=== PATIENT | female | born 1995 | race Caucasian/White ===

== ENCOUNTER → 2021-10-14 10:28 | Outpatient (BNVA) | payer OTHER, SELFPAY | PROVIDERS: Visit Provider Advanced Practice Midwife | DX: Z32.01 Encounter for pregnancy test, result positive (principal); R10.2 Pelvic and perineal pain; N92.6 Irregular menstruation, unspecified | CPT/HCPCS: 81025 ==

== ENCOUNTER 2021-10-24 09:10 | Outpatient (REF) | payer OTHER, SELFPAY ==
--- NOTE | ~2021-10-24 | US_ITS ---
EXAMINATION: US OBSTETRICAL ULTRASOUND CLINICAL INFORMATION: Irregular menstruation. COMPARISON: None. LMP: 09/04/2021. Gestational age by maternal dates is 7 weeks, 1 day. Estimated date of delivery by maternal dates is 06/11/2022. TECHNIQUE: Sonographic imaging of the pelvis performed using a transabdominal transducer. FINDINGS: Anteflexed, anteverted uterus has normal contour. No evidence of leiomyoma. Within the endometrial cavity, there is a well-formed gestational sac with surrounding decidual reaction. A pole has a crown-rump length of 0.8 cm, corresponding to estimated gestational age of 6 weeks, 6 days. The estimated date of delivery is 06/13/2022. The heart rate is 124 bpm. A normal 0.4 cm yolk sac is present. A small hypoechoic focus around the gestational sac measures approximately 0.7 x 1.5 cm, consistent with recent subchorionic bleed. The ovaries are normal. The right ovary is 4.4 x 3 x 2.6 cm and left ovary 3.0 x 2.5 x 1.9 cm. The dominant follicle of the right ovary measures up to 2.7 cm. No pelvic free fluid. US/US OB <= 14 weeks fetus IMPRESSION: * Single viable intrauterine gestation is present. The estimated gestational age of 6 weeks, 6 days, and the estimated date of delivery is 06/13/2022. * Small subchorionic bleed is noted.
== END 2021-10-24 09:11 | disposition home or self-care (01) ==
LOC: HO.US 09:10
PROVIDERS: Visit Provider Advanced Practice Midwife
DX: Z34.91 Encounter for supervision of normal pregnancy, unspecified, first trimester (principal); Z3A.01 Less than 8 weeks gestation of pregnancy
CPT/HCPCS: 76801